=== PATIENT | female | born 1995 | race Two or more races ===

== ENCOUNTER 2024-11-17 21:04 | Emergency (ER) | payer MEDICAID, OTHER ==
[~2024-11-17] VITALS: Ht 165.1 cm; Wt 90.5 kg
[2024-11-17 21:56] LABS: Urine Bacteria None Seen /hpf (None Seen)
[2024-11-17 21:59] LABS: COVID19 ANTIGEN SOFIA FIA NEGATIVE (NEGATIVE); Rapid Influenza A Negative (Negative); Rapid Influenza B Negative (Negative)
[2024-11-17 22:08] LABS: Urine Blood Negative /uL (Negative); Urine Clarity Clear (Clear); Urine Color Yellow (Yellow); Urine Mucus FEW (None Seen); Urine Protein, UAD TRACE (Negative); Urine Specific Gravity 1.024 (1.001-1.035); Urine Squamous Epithelial Cell FEW /hpf (<5); Urine Urobilinogen 3 mg/dL (Negative); Urine WBC 3 /hpf (0 - 5)
--- NOTE | 2024-11-17 22:30 | ED.PDOC ---
History of Present Illness HPI Comments 29Y F presents to ED for chief complaint lt rib pain that began today. Additional symptoms include non-productive cough and congestion x3-4days. Pt is also unsure if she is as LMP was 10/18/2024. Chief Complaint: Back Pain Time Seen by MD: 22:08 Primary Care Provider: DR. RODGERS Reviewed Notes: Nurses Notes, Medications, Allergies Allergies: Coded Allergies: NO KNOWN ALLERGIES (Unverified , 05/25/13) Information Source: Patient Mode of Arrival: Ambulatory Severity: Mild Timing: Hours Duration: Since onset Past Medical History PAST MEDICAL HISTORY: Denies Surgical History: Denies all surgeries CONTROL DIRECTOR History: No Pertinent CONTROL DIRECTOR History Family History Family History: Unknown Social History Smoker: Non-Smoker Alcohol: Denies ETOH Use Drugs: Denies Drug Use Lives In: Home Constitutional: denies: chills, diaphoresis, fatigue, fever, malaise, sweats, weakness, others EENTM: reports: nose congestion; denies: blurred vision, double vision, ear bleeding, ear discharge, ear drainage, ear pain, ear ringing, eye pain, eye redness, hearing loss, mouth pain, mouth swelling, nasal discharge, nose bleeding, nose pain, photophobia, tearing, throat pain, throat swelling, voice changes, others Respiratory: reports: cough; denies: hemoptysis, orthopnea, SOB at rest, shortness of breath, SOB with excertion, stridor, wheezing, others Cardiovascular: denies: chest pain, dizzy spells, diaphoresis, Dyspnea on exertion, edema, irregular heart beat, left arm pain, lightheadedness, palpitations, PND, syncope, others Gastrointestinal: denies: abdomen distended, abdominal pain, blood streaked bowels, constipated, diarrhea, dysphagia, difficulty swallowing, hematemesis, melena, nausea, poor appetite, poor fluid intake, rectal bleeding, rectal pain, vomiting, others Genitourinary: denies: abnormal vagina bleeding, burning, dyspareunia, dysuria, flank pain, frequency, hematuria, incontinence, pain, , vagina discharge, urgency, others Neurological: denies: dizziness, fainting, headache, left sided numbness, left sided weakness, numbness, paresthesia, pre-existing deficit, right sided numbness, right sided weakness, seizure, speech problems, tingling, tremors, weakness, others Musculoskeletal: reports: others (lt rib pain); denies: back pain, gout, joint pain, joint swelling, muscle pain, muscle stiffness, neck pain Integumetry: denies: bruises, change in color, change in hair/nails, dryness, laceration, lesions, lumps, rash, wounds, others Allergic/Immunocompromised: denies: Difficulty Healing, Frequent Infections, Hives, Itching, others Hematologic/Lymphatic: denies: anemia, blood clots, easy bleeding, easy bruis ing, swollen glands, others Endocrine: denies: excessive hunger, excessive sweating, excessive thirst, exc essive urination, flushing, intolerance to cold, intolerance to heat, unexplained weight gain, unexplained weight loss, others Psychiatric: denies: anxiety, bipolar disorder, depression, hopeless, panic disorder, schizophrenia, sleepless, suicidal, others All Other Systems: Reviewed and Negative Physical Exam General Appearance: No Apparent Distress, Normal HEENT: Normal ENT Inspection, Pharynx Normal, TMs Normal Neck: Full Range of Motion, Non-Tender, Normal, Normal Inspection Respiratory: Chest Non-Tender, Lungs Clear, No Accessory Muscle Use, No Respiratory Distress, Normal Breath Sounds Cardiovascular: No Edema, No JVD, No Murmur, No Gallop, Normal Peripheral Pulses, Regular Rate/Rhythm Breast Exam: Deferred Gastrointestinal: No Organomegaly, Non Tender, No Pulsatile Mass, Normal Bowel Sounds, Soft Genitalia: Deferred Pelvic: Deferred Rectal: Deferred Extremities: No calf tenderness, Normal capillary refill, Normal inspection, Normal range of motion, Non-tender, No pedal edema Musculoskeletal : Location: Left Extremity Location: Other (6-7th rib) Apperance: Tenderness Neurologic: Alert, elevator troubleshooter II-XII nml as Tested, No Motor Deficits, Normal Affect, Normal Mood, No Sensory Deficits Cerebellar Function: Normal Reflexes: Normal Skin: Dry, Normal Color, Warm Lymphatic: No Adenopathy Was a procedure done? Was a procedure done?: No Differential Dx Considerations may include: URI, influenza, COVID, strep throat, pharyngitis, pneumonia X-Ray, Labs, Meds, VS Vital Signs Date Time Temp Pulse Resp B/P (MAP) Pulse Ox O2 Delivery O2 Flow Rate FiO2 11/17/24 21:30 98.0 114 18 119/76 (90) 100 Lab Test 11/17/24 22:55 11/17/24 21:47 11/17/24 21:27 Range/Units White Blood Count 17.9 H 4.4-10.8 10^3/uL Red Blood Count 4.75 4.0-5.20 10^6/uL Hemoglobin 11.7 L 12.2-16.2 g/dL Hematocrit 36.2 36.0-46.0 % Mean Corpuscular Volume 76.3 L 80.0-100.0 fL Mean Corpuscular Hemoglobin 24.6 L 28.0-32.0 pg Mean Corpuscular Hemoglobin Concent 32.2 32.0-36.0 g/dL Red Cell Distribution Width 17.3 H 11.8-14.3 % Platelet Count 274 140-450 10^3/uL Mean Platelet Volume 8.5 6.9-10.8 fL Neutrophils (%) (Auto) 82.1 H 37.0-80.0 % Lymphocytes (%) (Auto) 9.5 L 10.0-50.0 % Monocytes (%) (Auto) 7.6 0.0-12.0 % Eosinophils (%) (Auto) 0.6 0.0-7.0 % Basophils (%) (Auto) 0.2 0.0-2.0 % Neutrophils # (Auto) 14.7 H 1.6-8.6 10 ^3/uL Lymphocytes # (Auto) 1.7 0.4-5.4 10 ^3/uL Monocytes # (Auto) 1.4 H 0-1.3 10 ^3/uL Eosinophils # (Auto) 0.1 0-0.8 10 ^3/uL Basophils # (Auto) 0 0-0.2 10 ^3/uL Nucleated Red Blood Cells 0.1 % Sodium Level 135 L 136-145 mmol/L Potassium Level 3.7 3.5-5.1 mmol/L Chloride Level 101 98-107 mmol/L Carbon Dioxide Level 25 20-31 mmol/L Anion Gap 9 5-15 Blood Urea Nitrogen 7 L 9-23 mg/dL Creatinine 0.65 0.550-1.02 mg/dL Glomerular Filtration Rate Calc 122 >90 mL/min BUN/Creatinine Ratio 10.8 10.0-20.0 Serum Glucose 116 H 74-106 mg/dL Calcium Level 9.6 8.7-10.4 mg/dL Total Bilirubin 0.7 0.2-1.0 mg/dL Aspartate Amino Transferase (AST) 10 L 13-40 U/L Alanine Aminotransferase (ALT) 21 7-40 U/L Alkaline Phosphatase 97 46-116 U/L Total Protein 6.9 5.7-8.2 g/dL Albumin 4.4 3.2-4.8 g/dL Beta HCG, Quantitative 27053.0 H 1.5-4.2 mIU/mL Urine Color Yellow Yellow Urine Clarity Clear Clear Urine pH 6.0 5.0-9.0 Urine Specific [place] 1.024 1.001-1.035 Urine Protein Trace H Negative Urine Ketones 1+ H Negative Urine Blood Negative Negative /uL Urine Nitrite Negative Negative Urine Bilirubin Negative Negative Urine Urobilinogen 3 H Negative mg/dL Urine Leukocyte Esterase Negative Negative /uL Urine RBC 1 0 - 4 /hpf Urine WBC 3 0 - 5 /hpf Urine Squamous Epithelial Cells Few <5 /hpf Urine Bacteria None seen None Seen /hpf Urine Mucus Few None Seen Urine Glucose Normal Normal mg/dL Urine Test Positive Negative Influenza Type A Antigen Negative Negative Influenza Type B Antigen Negative Negative SARS-CoV-2 Antigen (Rapid) Negative NEGATIVE X-Ray, Labs, Meds, VS Comment Imaging: Pelvic ultrasound ; suspected gestation of six weeks. heart tone and pole noted. Laboratory: Labs reviewed and interpreted by this provider. No significant abnormalities noted. Patient has prior medical visits reviewed. Med reconciliation performed Vital signs reviewed Time of 1ST Reevaluation: 22:38 Reevaluation 1ST: Unchanged Patient Education/Counseling: Diagnosis, Treatment, Need For Follow Up (Follow up with PCP/OBGYN next available appointment) Family Education/Counseling: No Family Present Departure 1 Departure Time of Disposition: 00:50 Impression: Primary Impression: First trimester Additional Impression: Upper respiratory infection Qualified Codes: J06.9 - Acute upper respiratory infection, unspecified Disposition: HOME / SELF CARE / HOMELESS Condition: Fair e-Prescriptions Amoxicillin Trihydrate (Amoxicillin) 875 Mg Tab 1 TAB PO BID for 7 Days, #14 TAB Prov: RYAN GOETZ 11/18/24 Discharged With: Self Critical Care Note Critical Care Time?: No Stability Stability form required: No Heart Score Heart Score: Heart Score Response (Comments) Value History N/A 0 EKG N/A 0 Age N/A 0 Risk Factors N/A 0 Troponin N/A 0 Total 0 I personally scribed for KEITH LINCOLN MD ([email or web address]) on 11/17/24 at 22:30. Electronically submitted by Chantal Nagy ([facility]). KEITH LINCOLN MD Nov 17, 2024 22:30 RYAN GOETZ Nov 18, 2024 00:50
[2024-11-17 23:24] LABS: Basophils # (auto) 0 10 ^3/uL (0-0.2); Eosinophils # (auto) 0.1 10 ^3/uL (0-0.8); Lymphocytes # (auto) 1.7 10 ^3/uL (0.4-5.4); Lymphocytes % (auto) 9.5 % (10.0-50.0); Neutrophils # (auto) 14.7 10 ^3/uL (1.6-8.6); Nucleated Red Blood Cells % 0.1 %
[2024-11-17 23:26] LABS: Basophils % (auto) 0.2 % (0.0-2.0); Eosinophils % (auto) 0.6 % (0.0-7.0); Hematocrit 36.2 % (36.0-46.0); Hemoglobin 11.7 g/dL (12.2-16.2); Mean Corpuscular Hemoglobin 24.6 pg (28.0-32.0); Mean Corpuscular Hgb Conc. 32.2 g/dL (32.0-36.0); Mean Corpuscular Volume 76.3 fL (80.0-100.0); Monocytes # (auto) 1.4 10 ^3/uL (0-1.3); Monocytes % (auto) 7.6 % (0.0-12.0); Neutrophils % (auto) 82.1 % (37.0-80.0); Platelet Count (auto) 274 10^3/uL (140-450); Red Blood Cells 4.75 10^6/uL (4.0-5.20); Red Cell Distribution Width 17.3 % (11.8-14.3); White Blood Cell 17.9 10^3/uL (4.4-10.8)
[2024-11-17 23:39] LABS: Alanine Aminotransferase 21 U/L (7-40); Albumin 4.4 g/dL (3.2-4.8); Alkaline Phosphatase 97 U/L (46-116); Anion Gap 9 (5-15); BUN/Creatinine Ratio 10.8 (10.0-20.0); Calcium 9.6 mg/dL (8.7-10.4); Carbon Dioxide 25 mmol/L (20-31); Chloride 101 mmol/L (98-107); Potassium 3.7 mmol/L (3.5-5.1)
[2024-11-17 23:40] LABS: Bilirubin, Total 0.7 mg/dL (0.2-1.0); Total Protein 6.9 g/dL (5.7-8.2)
[2024-11-17 23:59] LABS: Aspartate Aminotransferase 10 U/L (13-40); Blood Urea Nitrogen 7 mg/dL (9-23); Glucose 116 mg/dL (74-106); Sodium 135 mmol/L (136-145)
--- NOTE | 2024-11-18 00:42 | DVH ---
OBSTETRIC ULTRASOUND PRIOR TO 14 WEEKS CLINICAL INDICATION: abd pain TECHNIQUE: Multiple grayscale ultrasound images were obtained of the pelvis via transabdominal and tr ansvaginal approach for obstetric evaluation. Limited color Doppler and spectral Doppler acquisitions were also obtained. COMPARISON: None FINDINGS: Uterus: 8.3 x 6.6 x 5.3 cm. There is a single intrauterine gestational sac is visualized. A kaelyn e is visualized measuring 0.75 cm compatible with an estimated gestational age of 6 weeks, 5 days. F etal cardiac activity is present with heart rate of 152 beats per minute. A normal yolk sac is prese nt. Right adnexa: right ovary not visualized. No right adnexal mass seen. Left adnexa: left ovary not visualized. Normal arterial blood flow in the ovary. No left adnexal mass seen. Other: None IMPRESSION: Single living intrauterine with an estimated gestational age of 6 weeks, 5 days, correspo nding to an estimated date of delivery of 07/08/2025.
[2024-11-18] MEDS ORDERED: AMOX875T3 PO (00:48)
[2024-11-18 01:26] VITALS: BP 108/73; PULSE 101; RESP 16; TEMP 98.5; O2SAT 98
== END 2024-11-18 01:31 | disposition home or self-care (01) ==
LOC: ER 21:04
DX: O99.511 Diseases of the respiratory system complicating pregnancy, first trimester (principal); J06.9 Acute upper respiratory infection, unspecified; R10.2 Pelvic and perineal pain; Z3A.01 Less than 8 weeks gestation of pregnancy; Z20.822 Contact with and (suspected) exposure to COVID-19
CPT/HCPCS: 36415; 76801; 76817; 80053; 81001; 81025; 84702; 85025; 87426; 87804

== ENCOUNTER 2025-05-24 10:51 | Observation (INO) | payer MEDICAID ==
[~2025-05-24 10:51] MED LIST: AMOX875T3 PO
--- NOTE | 2025-05-24 11:34 | DVH ---
CLINICAL HISTORY: Gestational diabetes. COMPARISON: None TECHNIQUE: biophysical profile was performed. Transabdominal sonographic images of the fetus we re obtained. FINDINGS: The fetus is in cephalic position. heart rate measures 141 BPM. Amniotic fluid index measures 19.7 cm. The placenta is anterior in position without visualized evidence of previa or abrup tion. BPP profile is an overall score of 8/8, with 2/2 points for breathing, with at least one episode of breathing over a 30 second duration during a 30 minute observation, 2/2 points for m ovements, with 3 or more discrete body or limb movements, 2/2 points for tone, with one or more episodes of extremity extension with return to flexion, or opening and closing of hand, and 2/ 2 points for amniotic fluid, with at least 1 pocket of amniotic fluid that measures 2 cm in 2 perpend icular planes. IMPRESSION: BPP score of 8/8.
--- NOTE | 2025-05-25 08:24 | DVHDS2 ---
Physician Discharge Progress N Final Diagnosis: 33WKS GDM Operations or Procedures: Operations or Procedures NST REACTIVE REVIWED,SONO Condition on Discharge: Good Disposition: Home Discharge Instructions: Diet: Consistent carbohydrate Activity: No Restrictions, As Tolerated Medications: NA Follow Up Care: Specialist: 3D Discharge Statement: "Patient was advised to return to the ER or call 911 if any headaches, dizziness, shortness of breath, chest pain, abdominal pain, bleeding, fevers, or worsening of medical condition. Patient was counseled about treatment plan, medications, possible side effects, patientverbalized understanding. All questions were answered to the best of my ability. This discharge took greater then 30 minutes in planning, reviewing documentation, counseling the patient, and discussing with other team members." Visit Coding OBGYN Date of Service: May 24, 2025 Billing Provider: JIMMIE YOUSIF DO ASSISTANT WOMEN'S TENNIS COACH Common Visit Codes: 70626-SUYRAQA OBS CARE (HIGH) ASSISTANT WOMEN'S TENNIS COACH Procedure Codes: 07730-19- NON-STRESS TEST JIMMIE YOUSIF DO May 25, 2025 08:24
== END 2025-05-24 12:21 | disposition home or self-care (01) ==
LOC: LDRP 10:51
PROVIDERS: ADMIT Obstetrics & Gynecology; ATTEND Obstetrics & Gynecology
DX: O24.419 Gestational diabetes mellitus in pregnancy, unspecified control (principal); Z3A.33 33 weeks gestation of pregnancy; Z79.899 Other long term (current) drug therapy; Z98.890 Other specified postprocedural states
CPT/HCPCS: 59025; 76819; 81002; 82948; 82962; G0378

== ENCOUNTER 2025-05-31 16:00 | Observation (INO) | payer MEDICAID ==
[~2025-05-31] VITALS: Ht 165.1 cm; Wt 121.6 kg
[2025-05-31] MEDS ORDERED: PREN-96 PO (16:09)
--- NOTE | 2025-05-31 17:21 | DVH ---
BIOPHYSICAL PROFILE HISTORY: GDMA1 TECHNIQUE: Multiple transabdominal real-time grayscale sonographic images through the gravid uterus of the fetus with duplex Doppler color flow and M-mode spectral analysis FINDINGS: BIOPHYSICAL PROFILE: breathing score: 2 movement score: 2 tone score: 2 Quantitative SHELBIE score: 2 (SHELBIE: 16.54 Cm.) Total score: 8/8 The cervix Single live fetus in cephalic presentation. heart rate 166 beats per minute. Anterior Grade 2 placenta without previa or abruption Single live fetus at 34 weeks 4 days Biophysical profile score 8/8 corresponding to an BIN of 07/08/2026 IMPRESSION: 1. Biophysical profile score: 8/8
--- NOTE | 2025-06-01 23:02 | DVHDS2 ---
Discharge Summary Date of Admission May 31, 2025 at 16:00 Date of Discharge: May 31, 2025 Admitting Diagnosis 34 weeks, GDMA2 Brief Hx & Hospital Course: NST performed and reactive, US reassuring Condition at Discharge: Good Final Diagnosis/Problems List 34 weks GDMA2 Discharge Disposition: Home Discharge Instruct/Medications Diet: Consistent carbohydrate Activity: Light activity Scheduled Amoxicillin Trihydrate (Amoxicillin), 1 TAB PO BID Vit W/ Ferrous Fumara ( One Daily), 1 TAB PO DAILY, (Reported) Discharge Statement: "Patient was advised to return to the ER or call 911 if any headaches, dizziness, shortness of breath, chest pain, abdominal pain, bleeding, fevers, or worsening of medical condition. Patient was counseled about treatment plan, medications, possible side effects, patientverbalized understanding. All questions were answered to the best of my ability. This discharge took greater then 30 minutes in planning, reviewing documentation, counseling the patient, and discussing with other team members." ASSESSMENT ASSESSMENT Assessment Visit Coding OBGYN Date of Service: May 31, 2025 Billing Provider: NICA TUTTLE DO BACK TENDER PULP DRIER Common Visit Codes: [id number] INP/OBS CARE(HIGH), 28552-TZA/OBS SAME DATE (LOW), 31450-DVU/OBS SAME DATE (MOD) BACK TENDER PULP DRIER Procedure Codes: 12420-79- NON-STRESS TEST NICA TUTTLE DO Jun 01, 2025 23:02
== END 2025-05-31 17:19 | disposition home or self-care (01) ==
LOC: LDRP 16:00
PROVIDERS: ADMIT Obstetrics & Gynecology; ATTEND Obstetrics & Gynecology
DX: O24.419 Gestational diabetes mellitus in pregnancy, unspecified control (principal); Z3A.34 34 weeks gestation of pregnancy; Z79.899 Other long term (current) drug therapy
CPT/HCPCS: 59025; 76819; 81002; 94760; G0378

== ENCOUNTER 2025-06-04 09:55 | Observation (INO) | payer MEDICAID ==
[~2025-06-04 09:55] MED LIST changes: +PREN-96 PO
[2025-06-04] MEDS ORDERED: METF-371 PO (11:40)
--- NOTE | 2025-06-04 16:38 | DVH ---
EXAM: US BIOPHYSICAL PROFILE HISTORY: GDMA2 COMPARISON: US BIOPHYSICAL PROFILE on DOS: 05/31/25, US BIOPHYSICAL PROFILE on DOS: 05/24/25 TECHNIQUE: Multiple transabdominal real-time grayscale sonographic images through the gravid uterus of the fetus with duplex Doppler color flow and M-mode spectral analysis Findings/Impression: Single live intrauterine in vertex presentation with heart rate of 152 bpm. Biophysical profile was performed with 2 points for respirations, 2 points for movement, 2 points for tone and 2 points for amniotic fluid index. Biophysical profile score of 8/8. Amniotic fluid is within normal limits with SHELBIE 16.7 cm and MVP 6.1 cm. Normal SHELBIE (5-25 cm) Normal MVP (2-8 cm)
--- NOTE | 2025-06-05 04:48 | DVHDS2 ---
Physician Discharge Progress N Final Diagnosis: STABLE IUP AT 35.1 WEEKS EGA Operations or Procedures: Operations or Procedures NST REACTIVE REVIWED,SONO Condition on Discharge: Good Disposition: Home Discharge Instructions: Diet: Consistent carbohydrate, See Comment Diet comment: As directed by OB Physician Activity: No Restrictions, As Tolerated Medications: NA Follow Up Care: Specialist: 1W Discharge Statement: "Patient was advised to return to the ER or call 911 if any headaches, dizziness, shortness of breath, chest pain, abdominal pain, bleeding, fevers, or worsening of medical condition. Patient was counseled about treatment plan, medications, possible side effects, patientverbalized understanding. All questions were answered to the best of my ability. This discharge took greater then 30 minutes in planning, reviewing documentation, counseling the patient, and discussing with other team members." Visit Coding OBGYN Date of Service: Jun 04, 2025 Billing Provider: JIMMIE YOUSIF DO MANAGER MAIL Common Visit Codes: 61136-[id number] OBS CARE (HIGH) MANAGER MAIL Procedure Codes: 34697-72- NON-STRESS TEST JIMMIE YOUSIF DO Jun 05, 2025 04:48
== END 2025-06-04 12:04 | disposition home or self-care (01) ==
LOC: LDRP 09:55
PROVIDERS: ADMIT Obstetrics & Gynecology; ATTEND Obstetrics & Gynecology
DX: O36.5930 Maternal care for other known or suspected poor fetal growth, third trimester, not applicable or unspecified (principal); O24.419 Gestational diabetes mellitus in pregnancy, unspecified control; Z3A.35 35 weeks gestation of pregnancy; Z79.899 Other long term (current) drug therapy
CPT/HCPCS: 59025; 76819; 81002; 82948; 82962; 94760; G0378

== ENCOUNTER 2025-06-08 09:55 | Observation (INO) | payer MEDICAID ==
[~2025-06-08 09:55] MED LIST changes: -AMOX875T3 PO; +METF-371 PO
--- NOTE | 2025-06-08 10:47 | DVH ---
BIOPHYSICAL PROFILE HISTORY: GDMA2 TECHNIQUE: Multiple transabdominal real-time grayscale sonographic images through the gravid uterus of the fetus with duplex Doppler color flow and M-mode spectral analysis FINDINGS: BIOPHYSICAL PROFILE: breathing score: 8 movement score: 8 tone score: 8 Quantitative SHELBIE score: 8 (SHELBIE: 18.9 Cm.) Total score: 8/8 IMPRESSION: 1. Biophysical profile score: 8/8
--- NOTE | 2025-06-08 20:56 | DVHDS2 ---
Physician Discharge Progress N Final Diagnosis: 35wks gdm Operations or Procedures: Operations or Procedures nst reactive reviwed,sono Condition on Discharge: Good Disposition: Home Discharge Instructions: Diet: Regular Activity: No Restrictions, As Tolerated Medications: na Follow Up Care: Specialist: 1w Discharge Statement: "Patient was advised to return to the ER or call 911 if any headaches, dizziness, shortness of breath, chest pain, abdominal pain, bleeding, fevers, or worsening of medical condition. Patient was counseled about treatment plan, medications, possible side effects, patientverbalized understanding. All questions were answered to the best of my ability. This discharge took greater then 30 minutes in planning, reviewing documentat ion, counseling the patient, and discussing with other team members." Visit Coding OBGYN Date of Service: Jun 08, 2025 Billing Provider: JIMMIE YOUSIF DO WASHER REPAIRMAN Common Visit Codes: 68633-[id number] INP/OBS CARE (HIGH) WASHER REPAIRMAN Procedure Codes: 33096-64- NON-STRESS TEST JIMMIE YOUSIF DO Jun 08, 2025 20:56
== END 2025-06-08 10:58 | disposition home or self-care (01) ==
LOC: LDRP 09:55
PROVIDERS: ADMIT Obstetrics & Gynecology; ATTEND Obstetrics & Gynecology
DX: O24.419 Gestational diabetes mellitus in pregnancy, unspecified control (principal); Z3A.35 35 weeks gestation of pregnancy; Z79.899 Other long term (current) drug therapy; Z98.890 Other specified postprocedural states
CPT/HCPCS: 59025; 76819; 81002; 82948; 82962; G0378

== ENCOUNTER 2025-06-11 11:02 | Observation (INO) | payer MEDICAID ==
--- NOTE | 2025-06-11 12:11 | DVH ---
BIOPHYSICAL PROFILE HISTORY: GDMA2 TECHNIQUE: Multiple transabdominal real-time grayscale sonographic images through the gravid uterus of the fetus with duplex Doppler color flow and M-mode spectral analysis FINDINGS: BIOPHYSICAL PROFILE: breathing score: 2 movement score: 2 tone score: 2 Quantitative SHELBIE score: 2 (SHELBIE: 18.5 Cm.) Total score: 8 The cervix not well visualized. Single live fetus in cephalic presentation. heart rate 159 beats per minute. Anterior placenta without previa or abruption IMPRESSION: Biophysical profile score: 8
--- NOTE | 2025-06-11 14:01 | DVHDS2 ---
Physician Discharge Progress N Final Diagnosis: [id number] Operations or Procedures: Operations or Procedures nst reactive reviwed,sono Condition on Discharge: Good Disposition: Home Discharge Instructions: Diet: Consistent carbohydrate Activity: No Restrictions, As Tolerated Medications: na Follow Up Care: Specialist: 1w Discharge Statement: "Patient was advised to return to the ER or call 911 if any headaches, dizziness, shortness of breath, chest pain, abdominal pain, bleeding, fevers, or worsening of medical condition. Patient was counseled about treatment plan, medications, possible side effects, patientverbalized understanding. All questions were answered to the best of my ability. This discharge took greater then 30 minutes in planning, reviewing documentation, counseling the patient, and discussing with other team members." Visit Coding OBGYN Date of Service: Jun 11, 2025 Billing Provider: JIMMIE YOUSIF DO SPRING UPHOLSTERER Common Visit Codes: [id number] OBS CARE (HIGH) SPRING UPHOLSTERER Procedure Codes: 86535-30- NON-STRESS TEST JIMMIE YOUSIF DO Jun 11, 2025 14:01
== END 2025-06-11 12:37 | disposition home or self-care (01) ==
LOC: LDRP 11:02
PROVIDERS: ADMIT Obstetrics & Gynecology; ATTEND Obstetrics & Gynecology
DX: O24.419 Gestational diabetes mellitus in pregnancy, unspecified control (principal); Z3A.36 36 weeks gestation of pregnancy; Z79.899 Other long term (current) drug therapy
CPT/HCPCS: 59025; 76819; 81002; 82948; 82962; 94760; G0378

== ENCOUNTER 2025-06-14 11:01 | Observation (INO) | payer MEDICAID ==
--- NOTE | 2025-06-14 11:53 | DVH ---
BIOPHYSICAL PROFILE HISTORY: GDMA2 Comparison Study: US BIOPHYSICAL PROFILE on DOS: 06/11/25, US BIOPHYSICAL PROFILE on DOS: 06/08/25, US BIOPHYSICAL PROFILE on DOS: 06/04/25 TECHNIQUE: Multiple real-time grayscale sonographic images through the gravid uterus of the fetus wit h duplex doppler color flow and M-mode spectral analysis FINDINGS: BIOPHYSICAL PROFILE: breathing score: 2 movement score: 2 tone score: 2 Quantitative SHELBIE score: 2 (SHELBIE: 17.5 cm.) Total score: 8/8 Single live fetus in cephalic presentation. heart rate 167 beats per minute. Grade 2 anterior placenta without previa or abruption Biophysical profile score 8/8 corresponding to an BIN of 07/08/25 IMPRESSION: Biophysical profile score: 8/8
--- NOTE | 2025-06-14 12:12 | DVHDS2 ---
Physician Discharge Progress N Final Diagnosis: GDMA2 Secondary Diagnosis: Prior C/Section Operations or Procedures: Operations or Procedures NST/BPP SHELBIE all OK Condition on Discharge: Stable Disposition: Home Discharge Instructions: Diet: Consistent carbohydrate Activity: Light activity Follow Up/Referral: as scheduled Medications: na Follow Up Care: Discharge Statement: "Patient was advised to return to the ER or call 911 if any headaches, dizziness, shortness of breath, chest pain, abdominal pain, bleeding, fevers, or worsening of medical condition. Patient was counseled about treatment plan, medications, possible side effects, patientverbalized understanding. All questions were answered to the best of my ability. This discharge took greater then 30 minutes in planning, reviewing documentation, counseling the patient, and discussing with other team members." Visit Coding OBGYN Date of Service: Jun 14, 2025 Billing Provider: STERLING KWONG DO AEROSPACE ENGINEER OFFICER ARMAMENT Common Visit Codes: 94164-NVG/OBS SAME DATE (MOD) STERLING KWONG DO Jun 14, 2025 12:12
== END 2025-06-14 12:24 | disposition home or self-care (01) ==
LOC: LDRP 11:01
PROVIDERS: ADMIT Obstetrics & Gynecology; ATTEND Obstetrics & Gynecology
DX: O24.419 Gestational diabetes mellitus in pregnancy, unspecified control (principal); Z98.891 History of uterine scar from previous surgery; Z79.899 Other long term (current) drug therapy; Z3A.36 36 weeks gestation of pregnancy
CPT/HCPCS: 59025; 76819; 81002; 82948; 82962; G0378

== ENCOUNTER 2025-06-17 12:15 | Observation (INO) | payer MEDICAID ==
[2025-06-17 13:43] LABS: Hematocrit 35.5 % (36.0-46.0); Hemoglobin 12.0 g/dL (12.2-16.2); Mean Corpuscular Hemoglobin 28.0 pg (28.0-32.0); Mean Corpuscular Volume 82.7 fL (80.0-100.0); Nucleated Red Blood Cells % 0.2 %
[2025-06-17 13:48] LABS: INR 0.94 (0.9-1.15); Partial Thromboplastin Time 28.8 SEC (24.5-34.5); Prothrombin Time 10.0 sec (9.3-11.8)
[2025-06-17 13:52] LABS: Alanine Aminotransferase 20 U/L (7-40); Albumin 3.7 g/dL (3.2-4.8); Alkaline Phosphatase 125 U/L (46-116); Anion Gap 10 (5-15); BUN/Creatinine Ratio 9.3 (10.0-20.0); Blood Urea Nitrogen < 5 mg/dL (9-23); Calcium 9.9 mg/dL (8.7-10.4); Carbon Dioxide 21 mmol/L (20-31); Chloride 106 mmol/L (98-107); Glucose 121 mg/dL (74-106); Potassium 3.8 mmol/L (3.5-5.1); Sodium 137 mmol/L (136-145); Total Protein 5.9 g/dL (5.7-8.2)
--- NOTE | 2025-06-17 13:57 | DVH ---
BIOPHYSICAL PROFILE HISTORY: PIH TECHNIQUE: Multiple real-time grayscale sonographic images through the gravid uterus of the fetus wi th duplex Doppler color flow. FINDINGS: BIOPHYSICAL PROFILE: breathing score: 2 movement score: 2 tone score: 2 Quantitative SHELBIE score: 2 Total score: 8 out of 8 Single live intrauterine . heart rate of 151 beats per minute. lie is cephalic . Placenta is anteriorly positioned. SHELBIE 15.6 cm. IMPRESSION: Biophysical profile score: 8 out of 8
[2025-06-17 14:05] LABS: Uric Acid 5.1 mg/dL (3.1-7.8)
[2025-06-17 14:07] LABS: Bilirubin, Total 0.5 mg/dL (0.2-1.0)
[2025-06-17 14:11] LABS: Urine Protein, UAD Negative (Negative)
[2025-06-17 14:20] LABS: Protein, Urine < 6.0 mg/dL (1-14)
--- NOTE | 2025-06-17 14:46 | DVHDS2 ---
Physician Discharge Progress N Final Diagnosis: GDM, A2 ruled out preeclampsia Operations or Procedures: Operations or Procedures S: 30yo IUP@37wks, +FM, denies UCs/VB/LOF/RAMIREZ/vision changes/RUQ pain. PNC with Dr. Gold, sent down from office today for BLE edema and bilateral hand edema. PNC complicated by GDM, A2. O: VSS NST reactive Laboratory Tests Test 06/17/25 13:08 06/17/25 13:43 Range/Units White Blood Count 8.1 4.4-10.8 10^3/uL Red Blood Count 4.30 4.0-5.20 10^6/uL Hemoglobin 12.0 L 12.2-16.2 g/dL Hematocrit 35.5 L 36.0-46.0 % Mean Corpuscular Volume 82.7 80.0-100.0 fL Mean Corpuscular Hemoglobin 28.0 28.0-32.0 pg Mean Corpuscular Hemoglobin Concent 33.9 32.0-36.0 g/dL Red Cell Distribution Width 17.5 H 11.8-14.3 % Platelet Count 197 140-450 10^3/uL Mean Platelet Volume 9.0 6.9-10.8 fL Neutrophils (%) (Auto) 69.9 37.0-80.0 % Lymphocytes (%) (Auto) 22.4 10.0-50.0 % Monocytes (%) (Auto) 7.0 0.0-12.0 % Eosinophils (%) (Auto) 0.5 0.0-7.0 % Basophils (%) (Auto) 0.2 0.0-2.0 % Neutrophils # (Auto) 5.7 1.6-8.6 10 ^3/uL Lymphocytes # (Auto) 1.8 0.4-5.4 10 ^3/uL Monocytes # (Auto) 0.6 0-1.3 10 ^3/uL Eosinophils # (Auto) 0 0-0.8 10 ^3/uL Basophils # (Auto) 0 0-0.2 10 ^3/uL Nucleated Red Blood Cells 0.2 % Prothrombin Time 10.0 9.3-11.8 sec Prothrombin Time INR 0.94 0.9-1.15 Activated Partial Thromboplast Time 28.8 24.5-34.5 SEC Sodium Level 137 136-145 mmol/L Potassium Level 3.8 3.5-5.1 mmol/L Chloride Level 106 98-107 mmol/L Carbon Dioxide Level 21 20-31 mmol/L Anion Gap 10 5-15 Blood Urea Nitrogen < 5 L 9-23 mg/dL Creatinine 0.54 L 0.550-1.02 mg/dL Glomerular Filtration Rate Calc 127 >90 mL/min BUN/Creatinine Ratio 9.3 L 10.0-20.0 Serum Glucose 121 H 74-106 mg/dL Uric Acid 5.1 3.1-7.8 mg/dL Calcium Level 9.9 8.7-10.4 mg/dL Total Bilirubin 0.5 0.2-1.0 mg/dL Aspartate Amino Transferase (AST) 21 13-40 U/L Alanine Aminotransferase (ALT) 20 7-40 U/L Alkaline Phosphatase 125 H 46-116 U/L Total Protein 5.9 5.7-8.2 g/dL Albumin 3.7 3.2-4.8 g/dL Treponema pallidum Antibody Non-reactive Negative Urine Color Light-yellow Yellow Urine Clarity Turbid H Clear Urine pH 6.0 5.0-9.0 Urine Specific [place] 1.002 1.001-1.035 Urine Protein Negative Negative Urine Ketones Negative Negative Urine Blood Negative Negative /uL Urine Nitrite Negative Negative Urine Bilirubin Negative Negative Urine Urobilinogen Normal Negative mg/dL Urine Leukocyte Esterase Negative Negative /uL Urine RBC 2 0 - 4 /hpf Urine Microscopic WBC 6 H 0-5 /HPF Urine Squamous Epithelial Cells Few <5 /hpf Urine Bacteria Few H None Seen /hpf Urine Creatinine 19.01 L 30.0-125.0 mg/dL -U-r-i-n-e- -T-d-f-t-e-i-n-/-S-w-s-v-d-q-n-i-n-e- -R-a-t-i-o- -<- -0-.-3-2- Urine Glucose Normal Normal mg/dL Urine Total Protein < 6.0 1-14 mg/dL A: 30yo IUP@37wks GDM, A2 Ruled out preeclampsia P: D/C home [facility]KC/PreE/Labor precautions reviewed. f/u twice weekly for NST/BPP Dr. Gold consulted, agrees with POC. Other Interventions Other Interventions [facility] [id number] [facility] [address] Ph: [phone] DIAGNOSTIC IMAGING Diagnostic Imaging Report : [id number] Signed PATIENT: BEV DILL: [id number] UNIT: [id number] : 1995 LOC: [facility] ROOM / BED: [facility] / A AGE / SEX: 30 / F ADM STATUS: ADM IN SERVICE 1225 ORDERING PHYSICIAN: STEFANO ESPARZA CNM PROCEDURE(s): BPP - BIOPHYSICAL PROFILE REASON: PIH ORDER NUMBER(s): [id number], ACCESSION NUMBER(s): [id number] BIOPHYSICAL PROFILE HISTORY: PIH TECHNIQUE: Multiple real-time grayscale sonographic images through the gravid uterus of the fetus with duplex Doppler color flow. FINDINGS: BIOPHYSICAL PROFILE: breathing score: 2 movement score: 2 tone score: 2 Quantitative SHELBIE score: 2 Total score: 8 out of 8 Single live intrauterine . heart rate of 151 beats per minute. lie is cephalic. Placenta is anteriorly positioned. SHELBIE 15.6 cm. IMPRESSION: Biophysical profile score: 8 out of 8 ATED BY: YAS THOMAS MD DICTATED DATE/TIME: 06/17/25 135 SIGNED BY: YAS THOMAS MD SIGNED DATE/TIME: 06/17/25 135 CC: Condition on Discharge: Stable Disposition: Home Discharge Instructions: Diet: Consistent carbohydrate Activity: No Restrictions, As Tolerated Medications: see med list Follow Up Care: Specialist: f/u twice weekly for NST/BPP Discharge Statement: "Patient was advised to return to the ER or call 911 if any headaches, dizziness, shortness of breath, chest pain, abdominal pain, bleeding, fevers, or worsening of medical condition. Patient was counseled about treatment plan, medications, possible side effects, patientverbalized understanding. All questions were answered to the best of my ability. This discharge took greater then 30 minutes in planning, reviewing documentation, counseling the patient, and discussing with other team members." Visit Coding OBGYN Date of Service: Jun 17, 2025 Billing Provider: STEFANO ESPARZA CNM MOVEMENT THERAPIST Common Visit Codes: 62545-[id number] OBS CARE (HIGH) MOVEMENT THERAPIST Procedure Codes: 56483-78- NON-STRESS TEST STEFANO ESPARZA CNM Jun 17, 2025 14:46
== END 2025-06-17 14:50 | disposition home or self-care (01) ==
LOC: UNDOADMOB 12:15 → LDRP 12:15
PROVIDERS: ADMIT Obstetrics & Gynecology; ATTEND Obstetrics & Gynecology
DX: O24.419 Gestational diabetes mellitus in pregnancy, unspecified control (principal); O13.3 Gestational [pregnancy-induced] hypertension without significant proteinuria, third trimester; Z98.890 Other specified postprocedural states; Z79.899 Other long term (current) drug therapy; Z3A.37 37 weeks gestation of pregnancy
CPT/HCPCS: 36415; 59025; 76819; 80053; 81001; 81002; 82570; 84156; 84550; 85025; 85610; 85730; 86780; 94760; G0378

== ENCOUNTER 2025-06-20 06:51 | Observation (INO) | payer MEDICAID ==
--- NOTE | 2025-06-21 12:33 | DVH ---
BIOPHYSICAL PROFILE HISTORY: GDMA2 TECHNIQUE: Multiple transabdominal real-time grayscale sonographic images through the gravid uterus of the fetus with duplex Doppler color flow and M-mode spectral analysis FINDINGS: BIOPHYSICAL PROFILE: breathing score: 2 movement score: 2 tone score: 2 Quantitative SHELBIE score: 2 (SHELBIE: 16.3 Cm.) Total score: 8/8 The cervix is not visualized. Single live fetus in cephalic presentation. heart rate 165 beats per minute. Anterior placenta without previa or abruption IMPRESSION: 1. Biophysical profile score: 8/8.
--- NOTE | 2025-06-22 06:44 | DVHDS2 ---
Discharge Summary Date of Admission Jun 21, 2025 at 10:48 Date of Discharge: Jun 21, 2025 Admitting Diagnosis 37.4 weeks, GDMA2 Labs/Diagnostic Data: Laboratory Results Test 06/21/25 11:15 POC Glucose 130 mg/dl (70-106) Brief Hx & Hospital Course: NST and US performed reassuring heart tones Condition at Discharge: Good Final Diagnosis/Problems List GDMA2 37 weeks reasuring Discharge Disposition: Home Discharge Instruct/Medications Diet: Consistent carbohydrate Activity: Light activity Scheduled Vit W/ Ferrous Fumara ( One Daily), 1 TAB PO DAILY, (Reported) Miscellaneous Medications Metformin Hydrochloride (Metformin Hcl), 850 MG PO, (Reported) Discharge Statement: "Patient was advised to return to the ER or call 911 if any headaches, dizziness, shortness of breath, chest pain, abdominal pain, bleeding, fevers, or worsening of medical condition. Patient was counseled about treatment plan, medications, possible side effects, patientverbalized understanding. All questions were answered to the best of my ability. This discharge took greater then 30 minutes in planning, reviewing documenta tion, counseling the patient, and discussing with other team members." ASSESSMENT ASSESSMENT Assessment Visit Coding OBGYN Date of Service: Jun 21, 2025 Billing Provider: NICA TUTTLE DO SPRING ASSEMBLER SUPERVISOR Common Visit Codes: 55364-JNV/OBS SAME DATE (LOW), 57230-RXP/OBS SAME DATE (MOD), 41082-KFB/OBS SAME DATE (HIGH) SPRING ASSEMBLER SUPERVISOR Procedure Codes: 24620-69- NON-STRESS TEST NICA TUTTLE DO Jun 22, 2025 06:44
== END 2025-06-21 12:06 | disposition home or self-care (01) ==
LOC: LDRP 06-21 10:48
PROVIDERS: ADMIT Obstetrics & Gynecology; ATTEND Obstetrics & Gynecology
DX: O24.419 Gestational diabetes mellitus in pregnancy, unspecified control (principal); Z98.890 Other specified postprocedural states; Z79.899 Other long term (current) drug therapy; Z3A.37 37 weeks gestation of pregnancy
CPT/HCPCS: 59025; 76819; 81002; 82948; 82962; 94760; G0378

== ENCOUNTER 2025-06-25 07:38 | Observation (INO) | payer MEDICAID ==
--- NOTE | 2025-06-25 12:54 | DVH ---
CLINICAL HISTORY: Gestational diabetes. COMPARISON: US BIOPHYSICAL PROFILE on DOS: 06/21/25, US BIOPHYSICAL PROFILE on DOS: 06/17/25, US BIOPHYS ICAL PROFILE on DOS: 06/14/25 TECHNIQUE: biophysical profile was performed. Transabdominal sonographic images of the fetus we re obtained. FINDINGS: The fetus is in cephalic position. heart rate measures 154 BPM. Amniotic fluid index measures 17.2 cm. The placenta is anterior in position without visualized evidence of previa or abrup tion. BPP profile is an overall score of 8/8, with 2/2 points for breathing, with at least one episode of breathing over a 30 second duration during a 30 minute observation, 2/2 points for m ovements, with 3 or more discrete body or limb movements, 2/2 points for tone, with one or more episodes of extremity extension with return to flexion, or opening and closing of hand, and 2/ 2 points for amniotic fluid, with at least 1 pocket of amniotic fluid that measures 2 cm in 2 perpend icular planes. IMPRESSION: BPP score of 8/8.
--- NOTE | 2025-06-25 14:13 | DVHDS2 ---
Physician Discharge Progress N Final Diagnosis: gdm 38wks Operations or Procedures: Operations or Procedures nst reactive reviwed,sono Condition on Discharge: Good Disposition: Home Discharge Instructions: Diet: Consistent carbohydrate Activity: No Restrictions, As Tolerated Medications: na Follow Up Care: Specialist: 2d Discharge Statement: "Patient was advised to return to the ER or call 911 if any headaches, dizziness, shortness of breath, chest pain, abdominal pain, bleeding, fevers, or worsening of medical condition. Patient was counseled about treatment plan, medications, possible side effects, patientverbalized understanding. All questions were answered to the best of my ability. This discharge took greater then 30 minutes in planning, reviewing documentation, counseling the patient, and discussing with other team members." Visit Coding OBGYN Date of Service: Jun 25, 2025 Billing Provider: JIMMIE YOUSIF DO NAIL WELTER Common Visit Codes: 14328-DRCBHPF OBS CARE (HIGH) NAIL WELTER Procedure Codes: 36582-09- NON-STRESS TEST JIMMIE YOUSIF DO Jun 25, 2025 14:13
== END 2025-06-25 14:32 | disposition home or self-care (01) ==
LOC: LDRP 11:50
PROVIDERS: ADMIT Obstetrics & Gynecology; ATTEND Obstetrics & Gynecology
DX: O24.419 Gestational diabetes mellitus in pregnancy, unspecified control (principal); Z3A.38 38 weeks gestation of pregnancy; Z79.899 Other long term (current) drug therapy; Z98.890 Other specified postprocedural states
CPT/HCPCS: 59025; 76819; 81002; 82948; 82962; 94760; G0378

== ENCOUNTER 2025-06-27 08:56 | Inpatient (IN) | payer MEDICAID ==
[~2025-06-27] VITALS: Ht 162.6 cm; Wt 122.0 kg
[2025-06-27 10:06] LABS: Hematocrit 35.6 % (36.0-46.0); Hemoglobin 11.9 g/dL (12.2-16.2); Mean Corpuscular Hemoglobin 27.9 pg (28.0-32.0); Mean Corpuscular Volume 83.6 fL (80.0-100.0); Nucleated Red Blood Cells % 0.1 %
[2025-06-27 10:15] LABS: Alanine Aminotransferase 14 U/L (7-40); Anion Gap 8 (5-15); BUN/Creatinine Ratio 14.3 (10.0-20.0); Carbon Dioxide 22 mmol/L (20-31); Glucose 101 mg/dL (74-106); INR 0.94 (0.9-1.15); Partial Thromboplastin Time 28.3 SEC (24.5-34.5); Potassium 3.7 mmol/L (3.5-5.1); Prothrombin Time 10.0 sec (9.3-11.8); Sodium 139 mmol/L (136-145)
[2025-06-27 10:16] LABS: Albumin 3.5 g/dL (3.2-4.8); Bilirubin, Total 0.4 mg/dL (0.2-1.0)
[2025-06-27 10:19] LABS: Alkaline Phosphatase 124 U/L (46-116); Blood Urea Nitrogen 7 mg/dL (9-23); Calcium 8.7 mg/dL (8.7-10.4); Chloride 109 mmol/L (98-107); Total Protein 5.7 g/dL (5.7-8.2)
[2025-06-27 11:00] LABS: Urine Protein, UAD Negative (Negative)
[2025-06-27 11:07] LABS: Amphetamine Screen, Urine Neg (NEGATIVE); Barbiturate Scree,Urine Neg (NEGATIVE); Benzodiazephine Screen, Urine Neg (NEGATIVE); Cannabinoid Screen, Urine Neg (NEGATIVE); Cocaine Screen, Urine Neg (NEGATIVE); Opiate Scree,Urine Neg (NEGATIVE); Phencyclidine Screen, Urine Neg (NEGATIVE)
[2025-06-28] VITALS (16 sets, daily range): BP systolic 96–128; BP diastolic 56–77; PULSE 75–95; RESP 17–20; TEMP 97.8–97.9; O2SAT 97–100
[2025-06-28] MEDS: LACTATED RINGER'S 1,000 ML IV SCH (04:58)
[2025-06-28 06:23] LABS: Protein, Urine 46.1 mg/dL (1-14)
--- NOTE | 2025-06-28 09:19 | DVHHP2 ---
OB CC & HPI Date Date of Admission: Jun 28, 2025 Patient Identification: : 4 Para: 2 EDC: Jul 08, 2025 EGA: 38+wks Chief Complaints: Reason for admission: other (early labor) Indication for : desires repeat Admission Nurse Assessment Rev: No History of Present Complaints pt is admitted in early labor .she has had prior cs and wishes to have rcs .she has gdm risks ,compli of early del d/w ppt.possib of rds,in baby d/w pt.pt also has macroosmic baby possib of need for transfer d.w pt.pt has been noncompliant with gdm Past Medical History Cardiac: No pertinent Hx Pulmonary: No pertinent Hx Central Nervous System: No pertinent Hx GI: No pertinent Hx Hemotology/Oncology: No pertinent Hx Hepatobiliary: No pertinent Hx Psychiatric: No pertinent Hx Musculoskeletal: No pertinent Hx Rheumotologic: No pertinent Hx Infectious Disease: No peritnent Hx ENT: No pertinent Hx Renal/: No pertinent Hx Endocrine: No pertinent Hx Dermatology: No pertinent Hx Past Surgical History: OB History OB History Care: Good Care Ultrasounds: Normal mid trimester US Obstetrical Complications: Gestational Diabetes Medical Complications: None Allergies: Coded Allergies: NO KNOWN ALLERGIES (Unverified , 05/25/13) Home Meds Reported Medications Metformin Hydrochloride (Metformin Hcl) 850 Mg Tab, 850 MG PO for 30 Days, MG 06/04/25 Vit W/ Ferrous Fumara ( One Daily) Daily Tab, 1 TAB PO DAILY, #90 TAB 3 Refills 05/31/25 Current Medications Current Medications Medications (Trade) Dose Ordered Sig/Suyapa Route PRN Reason Start Time Stop Time Status Last Admin Lactated Ringer's 1,000 ml @ 125 mls/hr Q8H IV 06/28/25 04:45 06/28/25 04:58 Family & Social History Family/Social History Blood Type: Unknown Rubella: unknown RPR/VDRL: Negative GBS Status: Negative HBsAG: Negative Review of Systems Constitutional: No symptom reported Ears, Nose, & Throat: No symptom reported Eyes: No symptom reported Pulmonary/Respiratory: No symptom reported Cardiovascular: No symptom reported Gastrointestinal: No symptom reported Genitourinary: No symptom reported Musculoskeletal: No symptom reported Skin: No symptom reported Psychiatric: No symptom reported Endocrine: No symptom reported Hemotologic/Lymphatic: No symptom reported OB Admission Exam Physical Exam HEENT: TMs Normal, Fontanelles Normal, Nasal Mucosa Normal, Eyes non-injected, Oropharynx Normal, PERRLA, Moist Membranes, EOMI Heart: Rhythm Normal Lungs: Clear Abdomen: Non tender Extremities: Normal Reflexes: Normal Cervical Dilatation: 1cm Effacement: 25% Station: -2 Membranes: Intact Heart Rate: 130's Accelerations: Accelerations Present Decelerations: No Decelerations Short Term Variability: Present Keno Manager Variability: Average (6-25) Intensity: Mild OB Plan Plan Admitting Diagnosis: iup at 38+wlks inearly labor,gdma2 with noncompliancy macrosomia morbid obesity desires rcs Plan: Section Other Plan: informed consent obtained risks ,compl of cs , delivery d/w pt .all questions answered pt fully understamds wishes to proceed w/rcs Visit Coding OBGYN Date of Service: Jun 28, 2025 Billing Provider: JIMMIE YOUSIF DO INBOUND CUSTOMER SERVICE REPRESENTATIVE Common Visit Codes: 77634-[id number] INP/OBS CARE (HIGH) INBOUND CUSTOMER SERVICE REPRESENTATIVE Procedure Codes: 82790-56- NON-STRESS TEST JIMMIE YOUSIF DO Jun 28, 2025 09:19
[2025-06-28] MEDS ORDERED: DOCU-94 PO (09:21)
[2025-06-28] MEDS ORDERED: IBUP-1456 PO (09:21)
[2025-06-28] MEDS ORDERED: HYDR-4072 PO (09:21)
[2025-06-28] MEDS ORDERED: CEPH500T PO (09:21)
[2025-06-28] MEDS ORDERED: MORPHINE SULF PF 5 MG/10 ML VIAL ONE (09:38)
[2025-06-28] MEDS ORDERED: fentaNYL CITRATE 100 MCG/2 ML VL ONE (09:38)
--- NOTE | 2025-06-28 10:22 | DVHOP2 ---
Operative Report DATE OF OPERATION:06/28/25 PREOPERATIVE DIAGNOSES: iup at 38+wks in early labor,previous csx2 ,desires rcs ,macrosomia,gdma2] POSTOPERATIVE DIAGNOSES: [same,meconium] OPERATION PERFORMED: Repeat Section FINDINGS: [f] infant. Apgars of [8] and [8]. Weight [good] crying tone. [light mec] amniotic fluid. Placenta and three-vessel were intact. Normal tubes, ovaries, and uterus. SURGEON: Blanca Gold D.O. [place] ORDINARY: nuclear plant instrument technician, [josselyn]. ANESTHESIOLOGIST: marcella rick M.D. ANESTHESIA: [Duramorph spinal, regional]. COMPLICATIONS: [none]. ESTIMATED BLOOD LOSS: [500] mL. BLOOD PRODUCTS USED: [none]. PROCEDURE IN DETAIL: The patient was taken to the operating room, placed in sitting position, and spinal was placed without difficulty. She was then prepped and draped in a sterile fashion. A low Pfannenstiel incision was made scapel. At this point, it was carried down through the rectus fascia, nicked in the midline, and carried laterally. The rectus muscles were in the midline. Peritoneum was identified and entered with sharp dissection. Vesicouterine peritoneum was taken off the lower uterine segment. A lower uterine transverse incision was made with a scalpel down the chorionic membranes, ruptured with hemostat. was in vertex position. One hand was placed in the lower uterine segment. Head was essentially delivered spontaneously. Nose and mouth were bulb suctioned. Shoulders and torso were delivered without difficulty. Again, pharynx, nose, and mouth were re-suctioned with vigorous crying tone. Cord was cut. The was handed off to the awaiting Respiratory. At this point, umbilical blood sample was taken. Placenta was removed. Uterus was exteriorized, cleared off all clots and debris, irrigated, and closed with a double layer of 0-Vicryl. The vesicouterine peritoneum was incorporated into this closure. We had complete hemostasis. EBL was [500] mL. The instrument, lap, and sponge count was correct x1. The uterus was placed back into the peritoneum. The peritoneal cavity was re-inspected and the lower uterine incision with good hemostasis. We closed the peritoneum with running continuous of 2-0 Vicryl. The Rectus Fascia was closed with 0-PDS, running continuous, looped-0. The skin was closed undermined, irrigated, and close with kvng. CONDITION: The patient's and the infant's condition is stable and but guarded. Visit Coding OBGYN Date of Service: Jun 28, 2025 Billing Provider: BLANCA GOLD DO PEDIATRIC DENTAL HYGIENIST Common Visit Codes: 11675-[id number] INP/OBS CARE (HIGH) PEDIATRIC DENTAL HYGIENIST Procedure Codes: 22131-[id number] DELIVERY ONLY BLANCA GOLD DO Jun 28, 2025 10:22
--- NOTE | 2025-06-28 10:24 | POSTOP ---
Post-Operative Note Post-Operative Note Preop Diagnosis iup at 38wks in early labor,desires rcs,previous csx2,macrosomia,morbid obesity,gdm Postop Diagnosis: same Operation performed rcs Specimen baby girl,apgars 8-8,light mec Anesthesia: Regional Anesthesiologist: sheyla epps crna Blood Loss(fluid mgmt) 500ml Surgeon Jimmie arcos Complications & Mgmt none Additional Remarks abgs cord gas 7.3 ph Date 06/28/25 Time 10:22 Visit Coding OBGYN Date of Service: Jun 28, 2025 Billing Provider: JIMMIE YOUSIF DO CORRECTIONAL OFFICER CHIEF Common Visit Codes: 18203-OTTJBRB INP/OBS CARE (HIGH) CORRECTIONAL OFFICER CHIEF Procedure Codes: 28527-[id number] DELIVERY ONLY JIMIME YOUSIF DO Jun 28, 2025 10:24
[2025-06-28] MEDS ORDERED: ONDANSETRON HCL 4 MG/2 ML VIAL IV PRN (10:30)
[2025-06-28] MEDS ORDERED: ceFAZolin 1GM/50ML 50 ML IV SCH (10:30)
[2025-06-28] MEDS: GUM (CHEWING) 1 GUM CHEW CHEW ONE (10:30)
[2025-06-28] MEDS: LACT. RINGERS/OXYTOCIN 20UNITS 1,000 ML IV ONE (10:30)
[2025-06-28 11:17] LABS: Hematocrit 36.4 % (36.0-46.0); Hemoglobin 12.2 g/dL (12.2-16.2); Mean Corpuscular Hemoglobin 28.1 pg (28.0-32.0); Mean Corpuscular Volume 83.4 fL (80.0-100.0); Nucleated Red Blood Cells % 0.1 %
[2025-06-28] MEDS: ceFAZolin 2 GM/D5W50ml 50 ML IV ONE (12:24)
[2025-06-28] MEDS: LACTATED RINGER'S 1,000 ML IV ONE (12:25)
[2025-06-28] MEDS: ceFAZolin 1GM/50ML 50 ML IV SCH (17:00)
[2025-06-28] MEDS: ACETAMINOPHEN IV 1000 MG/100ML (10MG/ML) IV PRN (21:14)
--- NOTE | 2025-06-28 21:18 | DVHPN2 ---
Progress Note Date Seen: Jun 28, 2025 Subjective Repeat Section 06/28/2025 - PPD 0 S: bleeding is light, diet gelatin and clear liquids started denies lightheaded/dizziness, pain well controlled with oral medications, dangling at bedside. Will attempt to ambulate to the bathroom around 2200 O: VSS Chest: heart sounds normal and lung sounds clear bilaterally Abd: soft, non-tender, fundus at U/firm/midline, active bowel sounds, no rebound or guarding Incision: sylke dressing open to air, moderate staining noted on dressing/ marked with marker, no increased since /dry/intact,. Ext: Non-tender, No edema, 2+ BLE DTRs Lochia: minimal A: 30yo 0now PPD#1 s/p Repeat A positive Hepatitis Neg Rubella Immune P: Ambulate to the bathroom with nurse Susu D/C jaren if patient tolerates ambulation Family at bedside assisting with patient needs vital signs Vital Sign Date Time Temp Pulse Resp B/P (MAP) Pulse Ox O2 Delivery O2 Flow Rate FiO2 06/28/25 18:30 Room Air 06/28/25 18:30 97.9 87 17 104/68 (80) 99 97.9 06/28/25 10:35 0 99 medications Current Medications Medications Dose Ordered Sig/Suyapa Route Start Time Stop Time Status Last Admin Dose Admin Lactated Ringer's 1,000 ml @ 125 mls/hr Q8H IV 06/28/25 04:45 06/28/25 16:02 125 MLS/HR Acetaminophen 1,000 mg Q8HP PRN IV 06/28/25 09:15 06/29/25 06:01 Ondansetron HCl 4 mg Q4HP PRN IV 06/28/25 10:30 Cefazolin Sodium 50 ml @ 100 mls/hr Q8H IV 06/28/25 17:30 06/29/25 09:59 06/28/25 17:00 100 MLS/HR laboratory and microbiology Laboratory Tests 06/28/25 07:29 06/27/25 09:30 Test 06/27/25 09:30 Range/Units Serum Glucose 101 74-106 mg/dL Objective O: AFVSS Chest: heart and lung sounds normal. Abd soft, non-tender, fundus firm, BS, no rebound or guarding, Incision - dressing and incision clean, dry, intact Ext Neg Homans, Non-tender, edema Lochia - minimal Labs Assessment/Plan 30 yo R C/S 06/28 Plan discussed with: Patient Visit Coding OBGYN Date of Service: Jun 28, 2025 Billing Provider: JIMMIE YOUSIF DO EMPLOYMENT CASE MANAGER Common Visit Codes: [id number] INP/OBS CARE (MOD) [facility] 21:18
[2025-06-29] VITALS (14 sets, daily range): BP systolic 102–134; BP diastolic 62–85; PULSE 76–91; RESP 18–20; TEMP 97.9–98.7; O2SAT 97–98
[2025-06-29] MEDS: IBUPROFEN 800 MG TAB PO PRN (01:25)
[2025-06-29] MEDS: SIMETHICONE 80 MG CHEWABLE TABLET PO SCH (06:56)
[2025-06-29] MEDS: HYDROcodone-ACET 5/325MG TAB PO PRN ×2 (06:57→17:39)
[2025-06-29 07:06] LABS: Hematocrit 33.2 % (36.0-46.0); Hemoglobin 11.4 g/dL (12.2-16.2); Mean Corpuscular Hemoglobin 28.4 pg (28.0-32.0); Mean Corpuscular Volume 83.0 fL (80.0-100.0); Nucleated Red Blood Cells % 0.1 %
[2025-06-29] MEDS: DOCUSATE SOD 100 MG CAP PO SCH (09:24)
[2025-06-30 03:29] VITALS: BP 121/80; PULSE 81; RESP 20; TEMP 97.7; O2SAT 95
--- NOTE | 2025-06-30 05:55 | DVHPN2 ---
Progress Note Date Seen: Jun 29, 2025 Subjective S: Lochia minimal. Regular diet well tolerated. Ambulating and voiding well w/o feeling dizzy or lightheaded. Pain relieved with oral analgesics. Passing flatus but no BM yet. Feeding with formula by choice; states she has not been successful with for her other children. Desires and Requests to be discharged tomorrow vital signs Vital Sign Date Time Temp Pulse Resp B/P (MAP) Pulse Ox O2 Delivery O2 Flow Rate FiO2 06/30/25 03:29 97.7 81 20 121/80 (94) 95 97.7 06/29/25 18:30 Room Air 06/28/25 10:35 0 99 Total Intake and Output 06/29/25 06/29/25 06/30/25 15:00 23:00 07:00 Output Total 1000 ml Balance -1000 ml medications Current Medications Medications Dose Ordered Sig/Suyapa Route Start Time Stop Time Status Last Admin Dose Admin Lactated Ringer's 1,000 ml @ 125 mls/hr Q8H IV 06/28/25 04:45 06/28/25 16:02 125 MLS/HR Ondansetron HCl 4 mg Q4HP PRN IV 06/28/25 10:30 Docusate Sodium 100 mg Q12HR PO 06/29/25 10:00 06/29/25 22:08 100 MG Dimethicone 80 mg QID PO 06/29/25 06:00 06/30/25 05:31 80 MG Ibuprofen 800 mg Q8HP PRN PO 06/28/25 22:45 06/30/25 03:41 800 MG Acetaminophen/ Hydrocodone Bitart 1 tab Q4HPRN PRN PO 06/28/25 22:45 06/29/25 06:57 1 TAB Acetaminophen/ Hydrocodone Bitart 2 tab Q4HPRN PRN PO 06/28/25 22:45 06/29/25 23:48 2 TAB laboratory and microbiology Laboratory Tests 06/29/25 06:17 06/27/25 09:30 Test 06/27/25 09:30 Range/Units Serum Glucose 101 74-106 mg/dL Objective O A&O x3 NAD. Afebrile, VSS Chest: heart and lung sounds normal. Breasts: Nipples intact w/o cracks or soreness Abdomen: normal BS, soft, non-tender, no rebound or guarding, fundus firm @ U- 1, Lower abdominal Incision site with Sylke dressing on, open to fresh air same stained with old blood but dry and intact. No edema, erythema or induration noted Extremities: no edema or tenderness Lochia - minimal Assessment/Plan 30yo now Post operative & ppd #2 s/p Repeat Section doing well. Blood Type: A Rh: Positive Formula feeding infant Rubella Immune Pain control with oral medications Bowel regimen: Increase fluid intake and fiber in diet, Laxative PRN PP BCM Plan: Oral Contraceptive Pills Discharge plan: May discharge home tomorrow if condition remains stable Plan discussed with: Patient Visit Coding OBGYN Date of Service: Jun 29, 2025 Billing Provider: IESHA CANO CNM SOIL CHEMIST Common Visit Codes: [id number] INP/OBS CARE(HIGH) IESHA CANO CNM Jun 30, 2025 05:55
--- NOTE | 2025-06-30 06:00 | DVHPN2 ---
Progress Note Date Seen: Jun 30, 2025 Subjective S: Lochia minimal. Regular diet well tolerated. Ambulating and voiding well w/o feeling dizzy or lightheaded. Pain relieved with oral analgesics. Passing flatus but no BM yet. feeding with formula w/o problem Desires and Requests to be discharged today vital signs Vital Sign Date Time Temp Pulse Resp B/P (MAP) Pulse Ox O2 Delivery O2 Flow Rate FiO2 06/30/25 03:29 97.7 81 20 121/80 (94) 95 97.7 06/29/25 18:30 Room Air 06/28/25 10:35 0 99 Total Intake and Output 06/29/25 06/29/25 06/30/25 15:00 23:00 07:00 Output Total 1000 ml Balance -1000 ml medications Current Medications Medications Dose Ordered Sig/Suyapa Route Start Time Stop Time Status Last Admin Dose Admin Lactated Ringer's 1,000 ml @ 125 mls/hr Q8H IV 06/28/25 04:45 06/28/25 16:02 125 MLS/HR Ondansetron HCl 4 mg Q4HP PRN IV 06/28/25 10:30 Docusate Sodium 100 mg Q12HR PO 06/29/25 10:00 06/29/25 22:08 100 MG Dimethicone 80 mg QID PO 06/29/25 06:00 06/30/25 05:31 80 MG Ibuprofen 800 mg Q8HP PRN PO 06/28/25 22:45 06/30/25 03:41 800 MG Acetaminophen/ Hydrocodone Bitart 1 tab Q4HPRN PRN PO 06/28/25 22:45 06/29/25 06:57 1 TAB Acetaminophen/ Hydrocodone Bitart 2 tab Q4HPRN PRN PO 06/28/25 22:45 06/29/25 23:48 2 TAB laboratory and microbiology Laboratory Tests 06/29/25 06:17 06/27/25 09:30 Test 06/27/25 09:30 Range/Units Serum Glucose 101 74-106 mg/dL Objective O: A&O x3 NAD. Afebrile, VSS Chest: heart and lung sounds normal. Breasts: Nipples intact w/o cracks or soreness Abdomen: normal BS, soft, non-tender, no rebound or guarding, fundus firm @ U- 1, Lower abdominal Incision site with Sylke on same stained with old blood but dry and intact. No edema, erythema or induration Extremities: no edema or tenderness Lochia - minimal Assessment/Plan A/P: 30yo now Post operative & ppd #2 s/p Repeat Section doing well. Blood Type: A Rh: Positive Formula feeding Rubella Immune Pain control with oral medications Bowel regimen: Increase fluid intake and fiber in diet, Laxative PRN PP BCM Plan: Oral Contraceptive Pills Discharge plan: May discharge home later today if condition remains stable Plan discussed with: Patient Visit Coding OBGYN Date of Service: Jun 30, 2025 Billing Provider: IESHA CANO CNM LEGAL SERVICE SPECIALIST Common Visit Codes: [id number] INP/OBS CARE(HIGH) IESHA CANO CNM Jun 30, 2025 06:00
--- NOTE | 2025-06-30 06:25 | DVHDS2 ---
Discharge Summary Date of Admission Jun 28, 2025 at 03:57 Date of Discharge: Jun 30, 2025 Admitting Diagnosis IUP at 38w 4d GDMA2 Macrosomia Morbid Obesity h/o section x2 Desires Repeat section Wounds: Transverse Incision in lower abdomen Labs/Diagnostic Data: Laboratory Results Test 06/29/25 06:17 06/28/25 07:29 06/28/25 06:06 06/28/25 04:24 White Blood Count 8.4 10^3/uL (4.4-10.8) Red Blood Count 4.00 10^6/uL (4.0-5.20) Hemoglobin 11.4 g/dL (12.2-16.2) Hematocrit 33.2 % (36.0-46.0) Mean Corpuscular Volume 83.0 fL (80.0-100.0) Mean Corpuscular Hemoglobin 28.4 pg (28.0-32.0) Mean Corpuscular Hemoglobin Concent 34.2 g/dL (32.0-36.0) Red Cell Distribution Width 17.4 % (11.8-14.3) Platelet Count 159 10^3/uL (140-450) Mean Platelet Volume 9.1 fL (6.9-10.8) Neutrophils (%) (Auto) 71.9 % (37.0-80.0) Lymphocytes (%) (Auto) 19.9 % (10.0-50.0) Monocytes (%) (Auto) 6.8 % (0.0-12.0) Eosinophils (%) (Auto) 0.8 % (0.0-7.0) Basophils (%) (Auto) 0.6 % (0.0-2.0) Neutrophils # (Auto) 6.1 10 ^3/uL (1.6-8.6) Lymphocytes # (Auto) 1.7 10 ^3/uL (0.4-5.4) Monocytes # (Auto) 0.6 10 ^3/uL (0-1.3) Eosinophils # (Auto) 0.1 10 ^3/uL (0-0.8) Basophils # (Auto) 0 10 ^3/uL (0-0.2) Nucleated Red Blood Cells 0.1 % Uric Acid 5.1 mg/dL (3.1-7.8) Urine Creatinine 199.44 mg/dL (30.0-125.0) Urine Protein/Creatinine Ratio 0.23 Urine Total Protein 46.1 mg/dL (1-14) POC Glucose 108 mg/dl (70-106) Test 06/27/25 09:30 06/27/25 09:01 Prothrombin Time 10.0 sec (9.3-11.8) Prothrombin Time INR 0.94 (0.9-1.15) Activated Partial Thromboplast Time 28.3 SEC (24.5-34.5) Sodium Level 139 mmol/L (136-145) Potassium Level 3.7 mmol/L (3.5-5.1) Chloride Level 109 mmol/L (98-107) Carbon Dioxide Level 22 mmol/L (20-31) Anion Gap 8 (5-15) Blood Urea Nitrogen 7 mg/dL (9-23) Creatinine 0.49 mg/dL (0.550-1.02) Glomerular Filtration Rate Calc 130 mL/min (>90) BUN/Creatinine Ratio 14.3 (10.0-20.0) Serum Glucose 101 mg/dL (74-106) Calcium Level 8.7 mg/dL (8.7-10.4) Total Bilirubin 0.4 mg/dL (0.2-1.0) Aspartate Amino Transferase (AST) 15 U/L (13-40) Alanine Aminotransferase (ALT) 14 U/L (7-40) Alkaline Phosphatase 124 U/L (46-116) Total Protein 5.7 g/dL (5.7-8.2) Albumin 3.5 g/dL (3.2-4.8) Treponema pallidum Antibody Non-reactive (Negative) Urine Color Light-yellow (Yellow) Urine Clarity Turbid (Clear) Urine pH 6.0 (5.0-9.0) Urine Specific [place] 1.006 (1.001-1.035) Urine Protein Negative (Negative) Urine Ketones Negative (Negative) Urine Blood Negative /uL (Negative) Urine Nitrite Negative (Negative) Urine Bilirubin Negative (Negative) Urine Urobilinogen Normal mg/dL (Negative) Urine Leukocyte Esterase Negative /uL (Negative) Urine RBC 2 /hpf (0 - 4) Urine Microscopic WBC 6 /HPF (0-5) Urine Squamous Epithelial Cells Few /hpf (<5) Urine Bacteria Few /hpf (None Seen) Urine Hyaline Casts Few /lpf (0 - 2) Urine Glucose Normal mg/dL (Normal) Urine Opiates Screen Neg (NEGATIVE) Urine Fentanyl Screen Neg (NEGATIVE) Urine Barbiturates Screen Neg (NEGATIVE) Urine Phencyclidine Screen Neg (NEGATIVE) Urine Amphetamines Screen Neg (NEGATIVE) Urine Benzodiazepines Screen Neg (NEGATIVE) Urine Cocaine Screen Neg (NEGATIVE) Urine Cannabinoids Screen Neg (NEGATIVE) Other Laboratory Tests 06/29/25 06:17 06/27/25 09:30 Brief Hx & Hospital Course: Ms Benito was admitted on 06/28/25 at 38w 4d EGA for Repeat Section. She has GDMA2; non compliant, macrosomia, h/o section x2. and desires a repeat section. She had Section under Spinal anesthesia ( See Operative Note for details) Normal post-operative and course thus far; no meeting milestones w/o any sign of infection or complication. Operations or Procedures Repeat Section Condition at Discharge: Good Final Diagnosis/Problems List same Secondary Diagnosis: Term - Delivered Discharge Disposition: Home Discharge Instruct/Medications Diet: Regular Diet comment: Routine regular diet rich in fiber, protein, iron and vitamin C with adequate fluid intake. Activity: No Restrictions, As Tolerated Activity comment: Unrestricted. Advance as tolerated. Balance activities with rest periods. No heavy lifting, pushing or straining. Pelvic rest x 6weeks Follow Up/Referral: Post operative and self care instructions given. self care instructions given. emergency signs and symptoms including but not limited to pre-eclampsia precautions and signs of infection, PPH & of PPD reviewed with patient. Follow up with OB Provider in 1 week Medications: Ibuprofen 600mg every 6 hours as needed for pain. Continue Vitamin and iron Scheduled Docusate Sodium (Colace), 1 CAP PO BID Vit W/ Ferrous Fumara ( One Daily), 1 TAB PO DAILY, (Reported) Scheduled PRN Cephalexin Monohydrate (Cephalexin), 500 MG PO Q6HP PRN Hydrocodone-Acetaminophen (Hydrocodone/Acetaminophen 10-325 mg), 1 TAB PO Q6HPRN PRN Ibuprofen (Ibuprofen), 800 MG PO TID PRN Miscellaneous Medications Metformin Hydrochloride (Metformin Hcl), 850 MG PO, (Reported) 30 Discharge Statement: Post operative and self care instructions given. self care instructions given. emergency signs and symptoms including but not limited to pre-eclampsia precautions and signs of infection, PPH & of PPD reviewed with patient. Follow up with OB Provider in 1 week "Patient was advised to return to the ER or call 911 if any headaches, dizziness, shortness of breath, chest pain, abdominal pain, bleeding, fevers, or worsening of medical condition. Patient was counseled about treatment plan, medications, possible side effects, patientverbalized understanding. All questions were answered to the best of my ability. This discharge took greater then 30 minutes in planning, reviewing documentation, counseling the patient, and discussing with other team members." ASSESSMENT ASSESSMENT Hospital Course Ms Benito was admitted on 06/28/25 at 38w 4d EGA for Repeat Section. She has GDMA2; non compliant, macrosomia, h/o section x2. and desires a repeat section. She had Section under Spinal anesthesia ( See Operative Note for details) Normal post-operative and course thus far; no meeting milestones w/o any sign of infection or complication. Assessment same Visit Coding OBGYN Date of Service: Jun 30, 2025 Billing Provider: IESHA CANO CNM [employer] Common Visit Codes: 55727-BXR/OBS DISCH DAY <30MIN IESHA CANO CNM Jun 30, 2025 06:25
[2025-06-30 07:15] VITALS: BP 125/82; PULSE 82; RESP 20; TEMP 98.1; O2SAT 95
[2025-06-30] MEDS: TETANUS-DIPTH-ACEL PERTUSSIS 0.5ML SYR Tdap IM ONE (12:15)
== END 2025-06-30 13:17 | disposition home or self-care (01) | DRG 540 ==
LOC: PREOBSVTOIN 08:56 → LDRP 06-28 03:57
PROVIDERS: ADMIT Obstetrics & Gynecology; ATTEND Obstetrics & Gynecology
PROC: 10D00Z1 Extraction of Products of Conception, Low, Open Approach (ICD-10-PCS; principal; 2025-06-28 09:32)
DX: O77.0 Labor and delivery complicated by meconium in amniotic fluid (principal); O24.425 Gestational diabetes mellitus in childbirth, controlled by oral hypoglycemic drugs; E66.01 Morbid (severe) obesity due to excess calories; O99.214 Obesity complicating childbirth; O34.211 Maternal care for low transverse scar from previous cesarean delivery; O36.63X0 Maternal care for excessive fetal growth, third trimester, not applicable or unspecified; Z37.0 Single live birth; Z3A.38 38 weeks gestation of pregnancy; Z91.199 Patient's noncompliance with other medical treatment and regimen due to unspecified reason
CPT/HCPCS: 36415; 59025; 80053; 80307; 81001; 82570; 82948; 82962; 84156; 84550; 85025; 85610; 85730; 86780; 86850; 86900; 86901; 90715; 94760; 94762; 96360; 96361; 96365; 96366; 96372; G0378; J0131